=== PATIENT | female | born 1945 | race Caucasian/White ===

== ENCOUNTER 2021-12-09 20:38 | Inpatient (IN) | payer MEDICARE ==
[~2021-12-09 20:38] MED LIST: Iopamidol-370 76% 500 ML 1 ML ONE
[2021-12-09 21:26] LABS: #Lymphocytes 0.7 thou/uL (1.20-3.40); #Monocytes 0.5 thou/uL (0.11-0.59); #Neutrophils 6.4 thou/uL (1.40-6.50); %Basophils 0.2 % (0.0-1.0); %Eosinophils 0.3 % (0.0-10.0); %Lymphocytes 8.5 % (21.0-51.0); %Monocytes 7.1 % (0.0-10.0); %Neutrophils 83.9 % (42.0-75.0); Mean Corpuscular HGB CONC 33.1 g/dL (32.0-36.0); Mean Corpuscular Hemoglobin 29.5 pg (27.0-31.0); Mean Corpuscular Volume 89.3 fL (78.0-98.0); Mean Platelet Volume 7.1 fL (7.4-10.4); Platelet Count 289 thou/uL (130-400); RBC Distribution Width 13.4 % (11.5-14.5); Red Blood Cell (RBC) Count 4.41 mill/uL (4.20-5.40); White Blood Cell (WBC) Count 7.7 thou/uL (4.8-10.8)
[2021-12-09] MEDS ORDERED: Ondansetron PF 4 MG/2 ML Vial ONE (21:31)
[2021-12-09] MEDS ORDERED: Morphine 4 MG/ML VIAL ONE (21:31)
[2021-12-09 21:46] LABS: ALT (SGPT) 7 U/L (8-55); AST (SGOT) 9 U/L (5-34); Albumin 3.4 g/dL (3.4-4.8); Alkaline Phosphatase 154 U/L (40-110); Anion Gap 15 mmol/L (10-20); BUN (Urea Nitrogen) 21 mg/dL (9.8-20.1); Bilirubin, Total 1.1 mg/dL (0.2-1.2); Calc. Creatinine Clearance 0 mL/min (70-130); Calcium 9.4 mg/dL (7.8-10.44); Carbon Dioxide 31 mmol/L (23-31); Chloride 96 mmol/L (98-107); Glucose 137 mg/dL (83-110); Lipase 48 U/L (8-78); Potassium 3.5 mmol/L (3.5-5.1); Protein, Total 7.4 g/dL (5.8-8.1); Sodium 138 mmol/L (136-145)
[2021-12-09 23:22] LABS: Bilirubin Negative (Negative); Blood, Urine Trace (Negative); Clarity Clear (Clear); Glucose, Urine (Dipstick) Normal (Negative); Ketone, Urine Trace mg/dL (Negative); Leukocyte 500 Leu/uL (Negative); Nitrite 2+ (Negative); Protein, Urine (Dipstick) 10 mg/dL (Neg-Trace); Squamous Epithelial 0-3 HPF (0-3); Urobilinogen Normal mg/dL (Less than 2)
[2021-12-09 23:26] LABS: Specific Gravity, Urine 1.048 (1.002-1.036)
[2021-12-09 23:28] LABS: Bacteria/HPF 4+ HPF (None Seen); RBC/HPF 0-3 HPF (0-3); WBC/HPF 21-50 HPF (0-3)
[2021-12-09] MEDS ORDERED: Promethazine HCl 25 MG/ML VIAL ONE (23:30)
[2021-12-09] MEDS ORDERED: Acetaminophen 325 MG TAB PO PRN (23:33)
[2021-12-09] MEDS ORDERED: Dextrose 5% in Water 1,000 ML IV PRN (23:59)
[2021-12-09] MEDS ORDERED: Dextrose 50% Abboject 50 ML SYRINGE SLOW IVP PRN (23:59)
[2021-12-09] MEDS ORDERED: HumaLOG 300 UNITS/3 ML VIAL SC PRN ×2 (23:59)
[2021-12-10 00:05] LABS: Magnesium 1.9 mg/dL (1.6-2.6)
[2021-12-10] MEDS ORDERED: cefTRIAXone\\ROCEPHIN 1 GM VIAL ONE (00:43)
[2021-12-10] MEDS: cefTRIAXone\\ROCEPHIN 1 GM in Sodium Chloride 0.9% 100 ML IVPB SCH ×2 (01:41→23:38)
[2021-12-10 01:45] VITALS: BMI 25.9
[2021-12-10] MEDS ORDERED: Metoprolol Tartrate 5 MG/5 ML VIAL IVP SCH (01:45)
[2021-12-10] MEDS: Enoxaparin Sodium 80 MG/0.8 ML SYRINGE SC SCH ×2 (02:01→14:36)
[2021-12-10] MEDS: Sodium Chloride 0.9% 1,000 ML IV SCH ×3 (02:01→21:20)
[2021-12-10 02:27] LABS: Magnesium 1.9 mg/dL (1.6-2.6)
[2021-12-10 05:17] LABS: #Monocytes 0.7 thou/uL (0.11-0.59); #Neutrophils 5.3 thou/uL (1.40-6.50); %Basophils 0.1 % (0.0-1.0); %Eosinophils 0.4 % (0.0-10.0); %Lymphocytes 13.9 % (21.0-51.0); %Monocytes 9.6 % (0.0-10.0); %Neutrophils 75.9 % (42.0-75.0); Hemoglobin 11.9 g/dL (12.0-16.0); Mean Corpuscular HGB CONC 32.5 g/dL (32.0-36.0); Mean Corpuscular Hemoglobin 29.3 pg (27.0-31.0); Mean Corpuscular Volume 90.4 fL (78.0-98.0); Mean Platelet Volume 7.4 fL (7.4-10.4); Platelet Count 268 thou/uL (130-400); RBC Distribution Width 13.6 % (11.5-14.5); Red Blood Cell (RBC) Count 4.05 mill/uL (4.20-5.40)
[2021-12-10 05:36] LABS: Anion Gap 11 mmol/L (10-20); BUN (Urea Nitrogen) 20 mg/dL (9.8-20.1); Calc. Creatinine Clearance 76 mL/min (70-130); Calcium 8.9 mg/dL (7.8-10.44); Carbon Dioxide 30 mmol/L (23-31); Chloride 100 mmol/L (98-107); Glucose 119 mg/dL (83-110); Magnesium 1.9 mg/dL (1.6-2.6); Potassium 3.3 mmol/L (3.5-5.1); Sodium 138 mmol/L (136-145)
[2021-12-10] MEDS: Pantoprazole 40 MG VIAL IVP SCH (08:52)
[2021-12-10] MEDS ORDERED: Metoprolol Tartrate 25 MG TAB PO SCH ×2 (11:30→21:00)
[2021-12-10] MEDS ORDERED: Loratadine 10 MG TAB PO SCH (23:30)
[2021-12-11] MEDS: Enoxaparin Sodium 80 MG/0.8 ML SYRINGE SC SCH ×2 (02:45→14:57)
[2021-12-11] MEDS ORDERED: Metoprolol Tartrate 5 MG/5 ML VIAL IVP SCH (03:15)
[2021-12-11] MEDS: Ondansetron PF 4 MG/2 ML Vial IVP PRN ×2 (03:30→09:32)
[2021-12-11 06:10] LABS: #Eosinphils 0.1 thou/uL (0.0-0.7); #Lymphocytes 0.7 thou/uL (1.20-3.40); #Monocytes 0.5 thou/uL (0.11-0.59); #Neutrophils 5.9 thou/uL (1.40-6.50); %Basophils 0.2 % (0.0-1.0); %Eosinophils 0.9 % (0.0-10.0); %Lymphocytes 10.3 % (21.0-51.0); %Monocytes 7.5 % (0.0-10.0); %Neutrophils 81.1 % (42.0-75.0); Hemoglobin 11.9 g/dL (12.0-16.0); Mean Corpuscular HGB CONC 32.5 g/dL (32.0-36.0); Mean Corpuscular Hemoglobin 29.5 pg (27.0-31.0); Mean Corpuscular Volume 90.8 fL (78.0-98.0); Mean Platelet Volume 7.9 fL (7.4-10.4); Platelet Count 268 thou/uL (130-400); RBC Distribution Width 13.7 % (11.5-14.5); Red Blood Cell (RBC) Count 4.03 mill/uL (4.20-5.40); White Blood Cell (WBC) Count 7.2 thou/uL (4.8-10.8)
[2021-12-11 06:32] LABS: Anion Gap 15 mmol/L (10-20); BUN (Urea Nitrogen) 18 mg/dL (9.8-20.1); Calc. Creatinine Clearance 86 mL/min (70-130); Calcium 8.9 mg/dL (7.8-10.44); Carbon Dioxide 24 mmol/L (23-31); Chloride 104 mmol/L (98-107); Glucose 84 mg/dL (83-110); Magnesium 1.9 mg/dL (1.6-2.6); Potassium 3.3 mmol/L (3.5-5.1); Sodium 140 mmol/L (136-145)
[2021-12-11] MEDS: Pantoprazole 40 MG VIAL IVP SCH (09:10)
[2021-12-11] MEDS: Sodium Chloride 0.9% 1,000 ML IV SCH ×2 (09:10→20:46)
[2021-12-11] MEDS: Morphine 2 MG/ML VIAL SLOW IVP PRN (14:57)
[2021-12-11 16:22] LABS: INR-International Normal Ratio 1.1; PTT 41.6 sec (22.9-36.1)
[2021-12-11] MEDS: Potassium Chloride 20 MEQ in Premix Bag 1 BAG IVPB SCH ×2 (16:36→20:46)
[2021-12-11] MEDS ORDERED: Fentanyl 100 MCG/2 ML VIAL ONE ×2 (17:17)
[2021-12-11] MEDS ORDERED: Ketamine 50 MG/ML (10ML VIAL) ONE (17:18)
[2021-12-11 18:02] LABS: SARS-CoV-2 NAA Rapid Test Not Detected (NotDetected)
[2021-12-11] MEDS ORDERED: Midazolam HCl 2 mg/2 ml Vial ONE (18:21)
[2021-12-11] MEDS ORDERED: Norepinephrine 4 MG/4 ML VIAL ONE ×2 (18:21→18:24)
[2021-12-11] MEDS ORDERED: Phenylephrine 10 MG/ML VIAL ONE (18:24)
[2021-12-12] MEDS: Morphine 2 MG/ML VIAL SLOW IVP PRN ×5 (00:19→23:10)
[2021-12-12] MEDS: cefTRIAXone\\ROCEPHIN 1 GM in Sodium Chloride 0.9% 100 ML IVPB SCH ×2 (00:20→23:07)
[2021-12-12] MEDS: Sodium Chloride 0.9% 1,000 ML IV SCH ×3 (00:20→21:00)
[2021-12-12] MEDS: Enoxaparin Sodium 80 MG/0.8 ML SYRINGE SC SCH ×2 (01:30→13:19)
[2021-12-12 05:13] LABS: #Eosinphils 0.1 thou/uL (0.0-0.7); #Lymphocytes 0.7 thou/uL (1.20-3.40); #Monocytes 0.7 thou/uL (0.11-0.59); %Basophils 0.2 % (0.0-1.0); %Eosinophils 0.7 % (0.0-10.0); %Lymphocytes 8.2 % (21.0-51.0); Mean Corpuscular Hemoglobin 29.1 pg (27.0-31.0); Mean Corpuscular Volume 90.9 fL (78.0-98.0); Platelet Count 285 thou/uL (130-400); RBC Distribution Width 13.4 % (11.5-14.5); Red Blood Cell (RBC) Count 4.12 mill/uL (4.20-5.40); White Blood Cell (WBC) Count 8.5 thou/uL (4.8-10.8)
[2021-12-12 05:35] LABS: Anion Gap 15 mmol/L (10-20); BUN (Urea Nitrogen) 17 mg/dL (9.8-20.1); Calc. Creatinine Clearance 81 mL/min (70-130); Calcium 8.8 mg/dL (7.8-10.44); Carbon Dioxide 24 mmol/L (23-31); Chloride 107 mmol/L (98-107); Glucose 86 mg/dL (83-110); Magnesium 1.9 mg/dL (1.6-2.6); Potassium 3.9 mmol/L (3.5-5.1); Sodium 142 mmol/L (136-145)
[2021-12-12] MEDS: Pantoprazole 40 MG VIAL IVP SCH (09:39)
[2021-12-12] MEDS: Metoprolol Tartrate 5 MG/5 ML VIAL IVP PRN (09:55)
[2021-12-12] MEDS: Lactated Ringer's 500 ML IV SCH ×2 (13:25→14:30)
[2021-12-13] MEDS: Enoxaparin Sodium 80 MG/0.8 ML SYRINGE SC SCH ×2 (01:21→13:30)
[2021-12-13] MEDS: Morphine 2 MG/ML VIAL SLOW IVP PRN ×3 (04:48→13:29)
[2021-12-13] MEDS ORDERED: Labetalol HCl 100 MG/20 ML VIAL SLOW IVP PRN (08:59)
[2021-12-13] MEDS: Pantoprazole 40 MG VIAL IVP SCH (09:21)
[2021-12-13] MEDS: Sodium Chloride 0.9% 1,000 ML IV SCH (09:31)
[2021-12-13 09:54] LABS: #Lymphocytes 0.5 thou/uL (1.20-3.40); #Monocytes 0.5 thou/uL (0.11-0.59); #Neutrophils 7.6 thou/uL (1.40-6.50); %Basophils 0.3 % (0.0-1.0); %Eosinophils 0.3 % (0.0-10.0); %Lymphocytes 5.8 % (21.0-51.0); %Monocytes 6.2 % (0.0-10.0); %Neutrophils 87.4 % (42.0-75.0); Mean Corpuscular HGB CONC 31.2 g/dL (32.0-36.0); Mean Corpuscular Hemoglobin 28.7 pg (27.0-31.0); Mean Corpuscular Volume 91.9 fL (78.0-98.0); Platelet Count 288 thou/uL (130-400); RBC Distribution Width 13.5 % (11.5-14.5); Red Blood Cell (RBC) Count 4.17 mill/uL (4.20-5.40); White Blood Cell (WBC) Count 8.7 thou/uL (4.8-10.8)
[2021-12-13 10:13] LABS: Anion Gap 18 mmol/L (10-20); BUN (Urea Nitrogen) 17 mg/dL (9.8-20.1); Calc. Creatinine Clearance 86 mL/min (70-130); Calcium 9.1 mg/dL (7.8-10.44); Carbon Dioxide 19 mmol/L (23-31); Chloride 110 mmol/L (98-107); Glucose 89 mg/dL (83-110); Sodium 143 mmol/L (136-145)
[2021-12-13] MEDS: Ondansetron PF 4 MG/2 ML Vial IVP PRN (13:29)
[2021-12-13] MEDS: Metoprolol Tartrate 5 MG/5 ML VIAL IVP PRN (13:50)
[2021-12-13] MEDS ORDERED: Sodium Chloride 0.9% 1,000 ML IV SCH (17:36)
[2021-12-13] MEDS ORDERED: Sodium Chloride 0.9% 500 ML IV SCH (17:45)
[2021-12-13] MEDS ORDERED: Lactated Ringer's 1,000 ML IV SCH (21:00)
[2021-12-13] MEDS ORDERED: Morphine 4 MG/ML VIAL SLOW IVP PRN (21:58)
[2021-12-13] MEDS: cefTRIAXone\\ROCEPHIN 1 GM in Sodium Chloride 0.9% 100 ML IVPB SCH (23:04)
[2021-12-14 01:12] VITALS: BP 165/98; TEMP 97.8
== END 2021-12-14 01:15 | disposition short-term general hospital (02) | DRG 755 ==
LOC: ERS 20:38 → NEURO 23:49
PROVIDERS: ADMIT Hospitalist; ATTEND Hospitalist
PROC: 0D9670Z Drainage of Stomach with Drainage Device, Via Natural or Artificial Opening (ICD-10-PCS; principal; 2021-12-09)
DX: C56.1 Malignant neoplasm of right ovary (principal); Z66 Do not resuscitate; Z20.822 Contact with and (suspected) exposure to COVID-19; K56.50 Intestinal adhesions [bands], unspecified as to partial versus complete obstruction; I74.5 Embolism and thrombosis of iliac artery; N30.00 Acute cystitis without hematuria; C16.9 Malignant neoplasm of stomach, unspecified; R18.0 Malignant ascites; E11.9 Type 2 diabetes mellitus without complications; F41.9 Anxiety disorder, unspecified; F32.A Depression, unspecified; B96.20 Unspecified Escherichia coli [E. coli] as the cause of diseases classified elsewhere; I71.4 Abdominal aortic aneurysm, without rupture; Z60.2 Problems related to living alone; F17.210 Nicotine dependence, cigarettes, uncomplicated; I73.9 Peripheral vascular disease, unspecified; I48.0 Paroxysmal atrial fibrillation; Z79.899 Other long term (current) drug therapy; Z79.82 Long term (current) use of aspirin; Z79.84 Long term (current) use of oral hypoglycemic drugs
CPT/HCPCS: 36415; 36416; 36430; 74018; 74177; 80048; 80053; 81003; 81015; 83605; 83690; 83735; 85025; 85520; 85610; 85730; 86850; 86900; 86901; 87077; 87086; 87186; 93005; 93010; 96374; 96375; C9113; J0696; J1650; J2250; J2270; J2370; J2405; J2550; J3010; J3480; J3490; J7050; J7120; Q9967; U0002